=== PATIENT | female | born 1965 | race Caucasian/White ===

== ENCOUNTER 2018-07-17 00:48 | Emergency (ER) | payer BC, SELFPAY ==
[2018-07-17 00:50] VITALS: PULSE 97; RESP 24; TEMP 35.8; BMI 59.1
[2018-07-17] MEDS: Etomidate 20 MG/10 ML Vial 30 MG IV (00:56)
[2018-07-17] MEDS: Succinylcholine Chloride 200 MG/10 ML Vial IV (00:57)
--- NOTE | 2018-07-17 01:00 | CT_ITS ---
STUDY: CT BRAIN WITHOUT CONTRAST REASON FOR EXAM: Female, 52 years old. FALL, pt found unresponsive RADIATION DOSAGE (If Supplied By Facility): CTDIvol = ( 44.99 ) mGy, DLP = ( 829.85 ) mGycm TECHNIQUE: Transaxial CT imaging of the brain was performed without administration of intravenous contrast material. Individualized dose optimization techniques were used for this CT. COMPARISON: None. FINDINGS: Normal soft tissue structures. Normal calvarium. There is a large left basal ganglia hemorrhage measures approximately 6.6 cm in diameter. There is deviation of the midline structures to the right approximately 12 mm. There is beginning uncal herniation on the left side. Normal brainstem. Normal cerebellum. There is interventricular hemorrhage. There are no findings of an acute ischemic infarction. Normal visualized paranasal sinuses. CT/Brain/Head without Contrast IMPRESSION: There is a large left basal ganglia hemorrhage measures approximately 6.6 cm in diameter. There is deviation of the midline structures to the right approximately 12 mm. There is beginning uncal herniation on the left side. Electronically Signed: Tenzin Juan MD at 2:35 EDT Tel , Service support ,
--- NOTE | 2018-07-17 01:01 | CT_ITS ---
STUDY: CT CERVICAL SPINE WITHOUT CONTRAST REASON FOR EXAM: Female, 52 years old. Fall. Patient is unresponsive. RADIATION DOSAGE (If Supplied By Facility): CTDIvol = ( 33.72 ) mGy, DLP = ( 814.93 ) mGycm TECHNIQUE: High resolution transaxial imaging was performed without contrast material. Sagittal and coronal images were reconstructed. Individualized dose optimization techniques were used for this CT. COMPARISON: None FINDINGS: Normal craniovertebral junction. There are degenerative changes of the anterior atlantoaxial articulation. Normal odontoid process. Normal cervical lordosis. Normal vertebral bodies and posterior osseous elements. C2-3: Endplate spondylosis. Central and paracentral disc bulge. Degenerative changes of the bilateral facet joints and uncovertebral joints. Mild narrowing of the central canal and the bilateral intervertebral neural foramina. C3-4: Endplate spondylosis. Central and paracentral disc bulge. Degenerative changes of the bilateral facet joints and uncovertebral joints. Moderate to severe narrowing of the central canal and the bilateral intervertebral neural foramina. C4-5: Endplate spondylosis. Central and paracentral disc bulge. Degenerative changes of the bilateral facet joints and uncovertebral joints. Moderate to severe narrowing of the central canal and the bilateral intervertebral neural foramina. C5-6: Endplate spondylosis. Central and paracentral disc bulge. Degenerative changes of the bilateral facet joints and uncovertebral joints. Moderate to severe narrowing of the central canal and the bilateral intervertebral neural foramina. C6-7: Endplate spondylosis. Central and paracentral disc bulge. Degenerative changes of the bilateral facet joints and uncovertebral joints. Moderate to severe narrowing of the central canal and the bilateral intervertebral neural foramina. C7-T1: Normal endplates. Normal disc height and morphology. Normal central canal and intervertebral neuroforamina. Normal visualized soft tissue structures. CT/Spine Cervical without Contras IMPRESSION: Multilevel degenerative changes, as described above. Electronically Signed: Tenzin Juan MD at 2:40 EDT Tel , Service support ,
[2018-07-17 01:12] VITALS: PULSE 79; RESP 22; O2SAT 99
[2018-07-17 01:41] VITALS: BP 197/104; PULSE 66; RESP 19; O2SAT 100
[2018-07-17] MEDS: Propofol 10MG/Ml 1,000 MG/100 ML Bottle 5.298 MG CONT INF (01:45)
[2018-07-17 01:48] LABS: Mucous, Urine 0 SEEN /hpf (<or=2+); White Blood Cells 0 SEEN /hpf (0-5)
[2018-07-17 02:00] LABS: Absolute Lymphocyte Count 1.38 X10^3/ul (0.83-4.51); Absolute Neutrophil Count 15.8 X10^3/uL (2.0-7.7); Basophil# 0.03 X10^3/uL; Basophil% 0.2 % (0-1); Eosinophil# 0.09 X10^3/uL; Eosinophils% 0.5 % (0-5); Hematocrit 41.4 % (37-47); Hemoglobin 13.4 g/dl (12.0-15.0); Lymphocyte # 1.38 X10^3/ul (4.0); Lymphocyte % 7.7 % (19-41); Mean Corp Hgb Conc 32.4 g/gl (32-36); Mean Corpuscular Hgb 26.7 pg (27.0-32.0); Mean Corpuscular Volume 82.5 fL (81-99); Mean Platelet Vol. 10.3 fl (6.2-12.0); Monocyte# 0.66 X10^3/uL; Monocyte% 3.7 % (0-10); Neutrophil # 15.76 X10^3/uL (2.7-7.7); Neutrophil % 87.5 % (47-70); POSITIVE COUNT NO; POSITIVE DIFFERENTIAL NO; POSITIVE MORPHOLOGY NO; Partial Thromboplast Time 25.4 Seconds (24.1-36.2); Platelet Count 305 K/mm3 (150-450); Prothrombin Time (Protime)PT. 13.2 SECONDS (11.7-14.9); RBC Distribution Width CV 16.5 % (11.6-14.6); RBC Distribution Width SD 48.9 fl (35.1-43.9); Red Blood Count 5.02 M/mm3 (4.2-5.4)
[2018-07-17 02:03] LABS: Glucose, Dipstick 50 mg/dl (Normal); Ketone-Dipstick 5 mg/dl (Negative); Leukocyte Esterase-Dipstick Negative /ul (Negative); Nitrite-Dipstick Negative (Negative); Occult Blood-Urine 50 /ul (Negative); Protein-Dipstick 100 mg/dl (Negative); Urine Bilirubin Dipstick Negative (Negative); Urine Urobilinogen Normal (Normal)
[2018-07-17 02:04] LABS: Color, Urine Yellow (Yellow); Urine Clarity Clear (Clear)
--- NOTE | 2018-07-17 02:05 | RAD_ITS ---
STUDY: X-RAY CHEST REASON FOR EXAM: Female, 52 years old. Fall. Unresponsive TECHNIQUE: Single AP portable view of the chest. COMPARISON: None. FINDINGS: Endotracheal tube is seen its tip is 4 cm superior to the dino. An NG tube is seen its tip is below the diaphragm is in good position. There is ill-defined airspace disease in the right lung base suggesting pneumonia. There is no demonstrated pleural abnormality. There is moderate cardiac enlargement. Normal mediastinum and emmett. Normal visualized pulmonary arteries. Normal visualized aortic arch and descending thoracic aorta. Normal visualized thoracic spine. Normal visualized ribs, clavicles, and shoulders. There is no demonstrated abnormality of the visualized soft tissue structures of the upper abdomen. RAD/Chest 1 View (Portable) IMPRESSION: Right lower lobe pneumonia. Electronically Signed: Tenzin Juan MD at 2:30 EDT Tel , Service support ,
[2018-07-17 02:09] LABS: Alcohol, Blood (Medical)-Serum < 3.0 mg/dL
[2018-07-17 02:14] LABS: ALB/GLOB Ratio 0.9 RATIO (0.9-2.4); AST(SGOT) 21 U/L (15-37); Alanine Aminotransfer ALT/SGPT 21 U/L (13-56); Albumin, Serum 3.5 g/dL (3.2-5.0); Alkaline Phosphatase 128 U/L (45-117); Anion Gap 9 (5-15); BUN 12 mg/dL (7-18); BUN/Creat Ratio 14.6 RATIO (10-20); Calcium,Total 8.2 mg/dL (8.5-10.1); Chloride 99 mmol/L (98-107); Creatinine, Serum 0.82 mg/dL (0.55-1.02); EST Glomerular Filtration Rate 77 mL/min (>60); Est Glom Filt Rate - Afr Amer 93 mL/min (>60); Estimated Creatinine Clearance 80.96 ml/min; Glucose 213 mg/dL (74-106); Potassium 3.7 mmol/L (3.5-5.1); Protein, Total 7.5 g/dL (6.4-8.2); Sodium Level 137 mmol/L (136-145)
[2018-07-17 02:18] LABS: Amphetamine Urine VISTA NEGATIVE (<1000 ng/mL); Barbiturate Urine VISTA NEGATIVE (< 200 ng/mL); Benzodiazepine Urine VISTA NEGATIVE (< 200 ng/mL); Cocaine Urine VISTA NEGATIVE (< 300 ng/mL); Ecstacy Urine VISTA NEGATIVE (< 500 ng/mL); Methadone Urine VISTA NEGATIVE (< 300 ng/mL); PCP Urine VISTA NEGATIVE (< 25 ng/mL); THC Urine VISTA NEGATIVE (< 50 ng/mL); Vista UDS pH Range 5
[2018-07-17 02:18] LABS: Lactic Acid 3.2 mmol/L (0.4-2.0)
--- NOTE | 2018-07-17 02:18 | ED.RN ---
lab called with critical lab results. lactic acid 3.2. Dr. Armstrong made aware. No new orders at this time
[2018-07-17 02:19] LABS: Bacteria RARE /hpf (None Seen); Red Blood Cells-Urine 0-5 SEEN /hpf (0-5); Squamous Epithelial Cells - UA 0-5 SEEN /hpf (5-10)
--- NOTE | 2018-07-17 02:23 | ED.VISSUMM ---
- ER Visit Summary Date of Service: 07/17/18 Chief Complaint: Unresponsive History of Present Illness: The patient is a 52 F who presents after being found unresponsive. She was found at the bottom of the stairs she was last seen about 4 hours prior. states that she has trouble walking up the stairs. He is not sure if she fell or if she had another event. He states that she takes no medications and that she has been avoiding see a doctor for many years. Physical Examination: Vital signs are reviewed. Patient is in severe distress and not responsive. HEENT exam reveals a left pupil that is 5 mm in the right pupil is 2 mm. Her neck is supple with no step-offs. Heart is regular rate rhythm. Lungs are rhonchorous bilaterally. Abdomen is soft and nondistended. Extremities reveal no edema. She is not alert and oriented. She is unresponsive. Her GCS is 3. She does have sonorous respirations Test Results: CAT scan of the head reveals a large intraparenchymal hemorrhage with intraventricular extension. There is midline shift to the right. White count 18,000. Lactate is 3. Chest x-ray reveals appropriate positioning of the endotracheal tube. Emergency Department Course and Treatment: Patient was intubated upon arrival. 30 mg of etomidate and 200 mg of succinylcholine were administered. Using a glide scope a 75 endotracheal tube was placed on the first attempt. Patient did have desaturation into the 70s with this . She was able to rebound in less than 30 seconds with bagging. The patient was given 3% normal saline as well as nicardipine due to elevated blood pressure. She was sedated with propofol. Patient requires transfer to a tertiary care center. Family requested [facility] [place] [facility]. This was discussed with Dr. Irby. Patient will be transferred by medical helicopter. Treatment Plan: [] Disposition: Transfer Impression: Traumatic intraparenchymal hemorrhage with intraventricular extension and midline shift Acute respiratory failure secondary to #1 Critical care time 40 minutes This note was generated with [employer] dictation software. It may contain incorrect words, spelling, and punctuation that were not noted in review of the chart prior to signing ED Disposition - Plan for ED Patient: Chief Complaint: Unresponsive Referrals: Care Physician,No Primary [Primary Care Provider] -
[2018-07-17] MEDS: Sodium Chloride 3% 500 ML 999 ML IV (02:24)
[2018-07-17 02:30] VITALS: BP 190/100; PULSE 96; RESP 19; O2SAT 100
[2018-07-17 02:44] VITALS: BP 172/65; PULSE 93; RESP 18; O2SAT 100
[2018-07-17 02:50] LABS: Base Excess 5 mmol/L (-2 to +2); Bicarbonate 30.1 mmol/L (22-26); Blood Gas Specimen Type ART; FI02 60; Mode A-C; O2 Delivery Device Vent; PEEP 5; PO2 135 mmHG (75-100); RR 22; SITE L Radial; SO2 99 % (95-99); Total Carbon Dioxide 32 mmol/L; Vt 500; pCO2 52.3 mmHg (35-45); pH 7.37 (7.35-7.45)
[2018-07-17 05:43] LABS: Reflex Lactate? Y
[2018-07-17 15:16] LABS: Bedside Glucose 186 mg/dL (70-110)
== END 2018-07-17 03:28 | disposition short-term general hospital (02) ==
PROVIDERS: Emergency Provider Emergency Medicine
DX: S06.359A Traumatic hemorrhage of left cerebrum with loss of consciousness of unspecified duration, initial encounter (principal); R40.2432 Glasgow coma scale score 3-8, at arrival to emergency department; J96.00 Acute respiratory failure, unspecified whether with hypoxia or hypercapnia; W10.9XXA Fall (on) (from) unspecified stairs and steps, initial encounter; Y93.9 Activity, unspecified; Y92.9 Unspecified place or not applicable; Y99.9 Unspecified external cause status; E11.9 Type 2 diabetes mellitus without complications; I10 Essential (primary) hypertension
CPT/HCPCS: 31500; 36600; 51702; 70450; 71045; 72125; 80053; 80307; 80320; 81001; 82803; 82962; 83605; 84484; 85025; 85610; 85730; 94002; 96361; 96374; 96375; 99251; 99285; J7030; J7050; A4216; G0463; G0480; J0330